=== PATIENT | female | born 1990 | race Caucasian/White ===

== ENCOUNTER → 2017-04-16 10:33 | Outpatient (CLI) | payer BC, SELFPAY ==
--- NOTE | 2017-04-16 10:42 | US_ITS ---
US thyroid HISTORY: Follow-up thyroid nodule ITS.REASON: THYROID NODULE, HYPOTHYROIDISM ORDERING PHYSICIAN: Brooke Houston PATIENT AGE: 27 years COMPARISON: Outside exam of 11/11/2016 [facility] FINDINGS: The report is delayed waiting on outside films of for comparison which are obtained on 04/21/2017 Right lobe: 5 x 1.6 x 1.9 cm. There is heterogeneous echogenicity of the right lobe of the thyroid. There is a complex mostly hyperechoic nodule in the mid aspect of the right lobe measuring 1 cm transverse and 1.27 m cephalad to caudad. Previously this nodule measured 1.1 x 1 cm. There is a hypoechoic peripheral region. There is increased vascularity along the rim of this nodule Left lobe: 4.5 x 1.4 x 2 cm with some heterogeneous echogenicity Isthmus: Mildly prominent at 4 mm IMPRESSION: 1.2 x 1 cm slightly hyperechoic nodule with peripheral rim of decreased echogenicity in the posterior aspect of the right lobe of the thyroid gland may be very slightly larger compared to the previous exam. Continued follow-up recommended. Mildly enlarged heterogeneous thyroid gland suggestive of multinodular goiter as noted on the previous exam
== END ==
PROVIDERS: Family Provider Internal Medicine Adolescent Medicine; PCP Internal Medicine Adolescent Medicine; Visit Provider Nurse Practitioner Family
DX: E04.1 Nontoxic single thyroid nodule (principal); E03.9 Hypothyroidism, unspecified
CPT/HCPCS: 76536

== ENCOUNTER → 2018-05-03 14:01 | Outpatient (CLI) | payer BC, SELFPAY ==
--- NOTE | 2018-05-03 14:08 | US_ITS ---
US soft tissue head and neck CLINICAL INDICATION: Palpable neck nodule on the right ITS.REASON: AUTOIMMUNE HYPOTHYROIDISM, ANTERIOR CERVICAL ADENOPATHY ORDERING PHYSICIAN: Brooke Houston PATIENT AGE: 28 years Comparison: None FINDINGS: The palpable area in the right neck there is a 16 x 6 mm isoechoic nodule consistent with a lymph node. Just superior to this there is a 13 x 5 mm isoechoic nodule consistent with a lymph node. The submandibular gland and parotid gland have an unremarkable appearance on both sides. A small node is present in the left neck as well at 12 x 4 mm. No cystic areas are apparent. IMPRESSION: The palpable area in the right neck corresponds to a 16 x 6 mm lymph node
--- NOTE | 2018-05-03 14:08 | US_ITS ---
US thyroid HISTORY: Follow-up thyroid nodules ITS.REASON: AUTOIMMUNE HYPOTHYROIDISM, ANTERIOR CERVICAL ADENOPATHY ORDERING PHYSICIAN: Brooke Houston PATIENT AGE: 28 years Comparison: 04/16/2017 FINDINGS: The right lobe is 3.2 x 0.9 x 1.4 cm. There is heterogeneous echogenicity of the right lobe of the thyroid gland. There is a well-circumscribed 1.4 x 0.8 cm hyperechoic nodule with peripheral hypoechoic rim in the mid polar region on the right not significant change. In addition there is an isoechoic nodule in the lower pole on the right at 7 x 5 mm not significantly changed to slightly smaller possibly due to a parathyroid gland. The left lobe is 3.8 x 1.4 x 1.6 cm with heterogeneous echogenicity. No discrete mass. Isthmus is unremarkable. IMPRESSION: Heterogeneous echogenicity of the thyroid gland on both sides with no change in the right-sided thyroid nodules. Continued follow-up suggested
== END ==
PROVIDERS: PCP Nurse Practitioner Family; Visit Provider Nurse Practitioner Family
DX: E06.3 Autoimmune thyroiditis (principal); E04.1 Nontoxic single thyroid nodule; R59.0 Localized enlarged lymph nodes
CPT/HCPCS: 76536

== ENCOUNTER 2020-02-19 10:00 | Outpatient (RCR) | payer BC, SELFPAY | END 2020-02-19 12:00 | disposition home or self-care (01) | LOC: PT.CARL 10:00 | PROVIDERS: PCP Nurse Practitioner Family; Visit Provider Orthopaedic Surgery | DX: S82.892A Other fracture of left lower leg, initial encounter for closed fracture (principal) | CPT/HCPCS: 97010; 97014; 97033; 97110; 97112; 97116; 97140; 97163; G0283 ==

== ENCOUNTER → 2023-02-12 08:35 | Outpatient (CLI) | payer OTHER, SELFPAY ==
[2023-02-12 16:35] LABS: Alanine Aminotransferase 115 U/L (12-78); Albumin Level 4.3 g/dl (3.5-5.0); Albumin/Globulin Ratio 1.7 (1.1-1.8); Alkaline Phosphatase 59 U/L (38-126); Anion Gap 10.2 mEq/L (5-15); Aspartate Amino Transferase 74 U/L (14-36); Bilirubin,Total 0.6 mg/dl (0.2-1.3); Blood Urea Nitrogen 8 mg/dl (7-17); Calcium 9.1 mg/dl (8.4-10.2); Carbon Dioxide 27 mmol/L (22.0-30.0); Chloride 104 mmol/L (98-107); Chol/HDL Ratio 3.6 (1-3.5); Cholesterol 171 mg/dl (140-200); Estimated Glomerular Filt Rate 97 ml/min (>60); GFR (African American) 117 ML/MIN (>60); Globulin 2.5 g/dL (1.3-3.2); Glucose 89 mg/dl (74-100); HDL Cholesterol 47 mg/dl (40-60); Potassium 4.2 mmoL/L (3.5-5.1); Sodium 137 mmol/L (136-145); Total Protein,Serum 6.8 g/dl (6.3-8.2); Triglycerides 77 mg/dl (30-150); VLDL Cholesterol 15 mg/dL (0-40)
[2023-02-12 16:46] LABS: Direct LDL Cholesterol 92.54 mg/dL (100-129)
[2023-02-12 16:55] LABS: Basophils % 0.7 % (0.1-2.0); Eosinophils # 0.1 K/mm3 (0.0-0.4); Eosinophils % 1.5 % (0.1-12.0); Hematocrit 44.2 % (37.0-47.0); Hemoglobin 15.1 g/dL (12.2-16.2); Lymphocytes # 1.2 K/mm3 (0.7-4.5); Lymphocytes % 22.6 % (10-50); Mean Corpuscular HGB Conc 34.1 g/dL (31.8-35.4); Mean Corpuscular Hemoglobin 34.5 pg (27.0-31.2); Mean Corpuscular Volume 101.2 fl (81-99); Mean Platelet Volume 9.1 fl (7.4-10.4); Monocytes # 0.4 K/mm3 (0.1-1.0); Monocytes % 8.1 % (1.7-9.3); Neutrophils # 3.6 K/mm3 (1.8-7.8); Platelet Count 192 K/mm3 (142-424); Red Blood Count 4.37 M/mm3 (4.20-5.40); Red Cell Distribution Width 12.5 % (11.5-17.5); White Blood Count 5.4 K/mm3 (4.8-10.8)
[2023-02-12 17:05] LABS: Thyroid Stimulating Hormone 2.44 uIU/mL (0.465-4.68)
== END ==
PROVIDERS: PCP Nurse Practitioner Family; Visit Provider Nurse Practitioner Family
DX: E03.9 Hypothyroidism, unspecified (principal)
CPT/HCPCS: 80053; 80061; 84443; 85025